=== PATIENT | female | born 1970 | race Two or more races ===

== ENCOUNTER 2017-09-16 09:12 | Outpatient (CLI) | payer OTHER ==
[~2017-09-16 09:12] MED LIST: CELEBREX100 MG PO; DICYCLOMINE HCL20 MG PO; FLECTOR30 EA TP; PRILOSEC20 MG PO; SKELAXIN800 MG PO
== END 2017-09-16 09:34 | disposition home or self-care (01) ==
LOC: SONOGRAMA 09:12 → MAMO-SONO 09:45
DX: N92.0 Excessive and frequent menstruation with regular cycle (principal)

== ENCOUNTER → 2017-09-30 | Emergency (ER) | payer OTHER ==
[~2017-09-30] VITALS: Ht 162.6 cm; Wt 68.0 kg
[~2017-09-30] MED LIST changes: +VITAMIN D400 UNI2
== END | disposition home or self-care (01) ==
LOC: ER 19:49
DX: J11.1 Influenza due to unidentified influenza virus with other respiratory manifestations (principal)

== ENCOUNTER 2018-02-13 11:39 | Outpatient (CLI) | payer OTHER | END 2018-02-13 11:50 | disposition home or self-care (01) | LOC: MAMO-SONO 11:39 | DX: Z12.31 Encounter for screening mammogram for malignant neoplasm of breast (principal); N60.11 Diffuse cystic mastopathy of right breast; N60.12 Diffuse cystic mastopathy of left breast ==

== ENCOUNTER 2018-03-27 10:52 | Outpatient (CLI) | payer OTHER | END 2018-03-27 11:04 | disposition home or self-care (01) | LOC: SONOGRAMA 10:52 | DX: D25.9 Leiomyoma of uterus, unspecified (principal); N83.292 Other ovarian cyst, left side ==

== ENCOUNTER 2018-04-12 08:03 | Outpatient (CLI) | payer OTHER | END 2018-04-12 08:12 | disposition home or self-care (01) | LOC: TOM 08:03 | DX: R10.10 Upper abdominal pain, unspecified (principal) ==

== ENCOUNTER → 2018-06-13 | Emergency (ER) | payer OTHER ==
[~2018-06-13] VITALS: Ht 162.6 cm; Wt 72.6 kg
[~2018-06-13] MED LIST changes: +CIPRO500 MG PO; +KETO10TA2 PO; +URETRON D-S TAB1 TAB PO
== END | disposition home or self-care (01) ==
LOC: ER 09:16
DX: R10.12 Left upper quadrant pain (principal)

== ENCOUNTER 2018-09-11 09:21 | Outpatient (CLI) | payer OTHER | END 2018-09-11 09:46 | disposition home or self-care (01) | LOC: SONOGRAMA 09:21 | DX: N60.11 Diffuse cystic mastopathy of right breast (principal); N60.12 Diffuse cystic mastopathy of left breast; Z80.3 Family history of malignant neoplasm of breast ==

== ENCOUNTER 2019-02-14 07:50 | Outpatient (CLI) | payer OTHER | END 2019-02-14 08:00 | disposition home or self-care (01) | LOC: MAMO-SONO 07:50 | DX: Z80.3 Family history of malignant neoplasm of breast (principal); N60.11 Diffuse cystic mastopathy of right breast; N60.12 Diffuse cystic mastopathy of left breast ==

== ENCOUNTER 2020-03-11 09:03 | Outpatient (CLI) | payer OTHER | END 2020-03-11 09:21 | disposition home or self-care (01) | LOC: MAMO-SONO 09:03 | PROVIDERS: ATTEND Surgery | DX: Z12.31 Encounter for screening mammogram for malignant neoplasm of breast (principal); N60.11 Diffuse cystic mastopathy of right breast; N60.12 Diffuse cystic mastopathy of left breast; Z80.3 Family history of malignant neoplasm of breast ==

== ENCOUNTER 2020-06-12 08:34 | Outpatient (CLI) | payer OTHER | END 2020-06-12 15:31 | disposition home or self-care (01) | LOC: NUCLEAR 08:34 | PROVIDERS: ATTEND Internal Medicine | DX: I82.622 Acute embolism and thrombosis of deep veins of left upper extremity (principal) ==

== ENCOUNTER 2020-08-04 08:56 | Outpatient (CLI) | payer OTHER | END 2020-08-04 09:02 | disposition home or self-care (01) | LOC: RAD 08:56 | PROVIDERS: ATTEND Internal Medicine | DX: M40.47 Postural lordosis, lumbosacral region (principal); I70.0 Atherosclerosis of aorta; M54.5 Low back pain ==

== ENCOUNTER 2020-09-17 10:59 | Outpatient (CLI) | payer OTHER | END 2020-09-17 12:39 | disposition HB | LOC: SONOGRAMA 10:59 | PROVIDERS: ATTEND Internal Medicine | DX: E21.4 Other specified disorders of parathyroid gland (principal) ==

== ENCOUNTER 2021-03-12 09:09 | Outpatient (CLI) | payer OTHER | END 2021-03-12 09:38 | disposition home or self-care (01) | LOC: MAMO-SONO 09:09 | PROVIDERS: ATTEND Surgery | DX: N60.11 Diffuse cystic mastopathy of right breast (principal); N60.12 Diffuse cystic mastopathy of left breast; Z12.31 Encounter for screening mammogram for malignant neoplasm of breast ==

== ENCOUNTER 2021-05-20 02:56 | Emergency (ER) | payer OTHER ==
[~2021-05-20] VITALS: Ht 162.6 cm; Wt 72.6 kg
[2021-05-20] MEDS ORDERED: VASOFLEX D1 CA1 EACH (03:06)
[2021-05-20] MEDS ORDERED: CRESTOR10 MG (03:06)
[2021-05-20] MEDS ORDERED: PEPCID40 MG PO (06:30)
[2021-05-20] MEDS ORDERED: PROTONIX40 MG PO (06:30)
== END 2021-05-20 06:37 | disposition home or self-care (01) ==
LOC: ER 02:56
DX: R10.13 Epigastric pain (principal)

== ENCOUNTER 2021-11-27 09:15 | Outpatient (CLI) | payer OTHER ==
[~2021-11-27 09:15] MED LIST changes: +CRESTOR10 MG; +PEPCID40 MG PO; +PROTONIX40 MG PO; +VASOFLEX D1 CA1 EACH
== END 2021-11-27 09:32 | disposition home or self-care (01) ==
LOC: RAD 09:15
PROVIDERS: ATTEND Internal Medicine
DX: J44.1 Chronic obstructive pulmonary disease with (acute) exacerbation (principal)

== ENCOUNTER 2022-03-15 10:29 | Outpatient (CLI) | payer OTHER | END 2022-03-15 10:43 | disposition home or self-care (01) | LOC: MAMO-SONO 10:29 | PROVIDERS: ATTEND Surgery | DX: Z12.31 Encounter for screening mammogram for malignant neoplasm of breast (principal); N60.11 Diffuse cystic mastopathy of right breast; N60.12 Diffuse cystic mastopathy of left breast ==

== ENCOUNTER 2022-07-24 21:09 | Emergency (ER) | payer OTHER ==
[~2022-07-24] VITALS: Ht 162.6 cm; Wt 71.7 kg
== END 2022-07-25 00:48 | disposition home or self-care (01) ==
LOC: ER 21:09
DX: R20.2 Paresthesia of skin (principal); I10 Essential (primary) hypertension; Z91.040 Latex allergy status; Z91.013 Allergy to seafood

== ENCOUNTER 2023-03-21 09:59 | Outpatient (CLI) | payer OTHER | END 2023-03-21 10:12 | disposition home or self-care (01) | LOC: MAMO-SONO 09:59 | PROVIDERS: ATTEND Surgery | DX: Z12.31 Encounter for screening mammogram for malignant neoplasm of breast (principal); N60.11 Diffuse cystic mastopathy of right breast; N60.12 Diffuse cystic mastopathy of left breast ==

== ENCOUNTER 2023-08-22 13:56 | Outpatient (CLI) | payer OTHER | END 2023-08-22 14:03 | disposition home or self-care (01) | LOC: RAD 13:56 | PROVIDERS: ATTEND Internal Medicine Pulmonary Disease | DX: J45.31 Mild persistent asthma with (acute) exacerbation (principal); G47.33 Obstructive sleep apnea (adult) (pediatric) ==

== ENCOUNTER 2023-10-04 07:27 | Outpatient (CLI) | payer OTHER | END 2023-10-04 07:35 | disposition home or self-care (01) | LOC: RAD 07:27 | PROVIDERS: ATTEND Internal Medicine | DX: M25.561 Pain in right knee (principal) ==

== ENCOUNTER 2024-02-27 09:18 | Outpatient (CLI) | payer OTHER | END 2024-02-27 09:34 | disposition home or self-care (01) | LOC: SONOGRAMA 09:18 | PROVIDERS: ATTEND Internal Medicine | DX: N18.30 Chronic kidney disease, stage 3 unspecified (principal) ==

== ENCOUNTER 2024-05-01 14:11 | Emergency (ER) | payer OTHER ==
[~2024-05-01] VITALS: Ht 289.6 cm; Wt 78.9 kg
[2024-05-01] MEDS ORDERED: LOSARTAN POTASS50 MG PO (14:51)
[2024-05-01 16:04] LABS: HEMATOCRIT 40.1 % (36.0-45.00); HEMOGLOBIN 13.7 g/dL (12.0-15.00); MEAN CELL VOLUME 85.7 fL (80.00-100.00); MEAN CORPUSCULAR HEMOGLOBIN 29.3 pg (27.00-32.0); MEAN CORPUSCULAR HGB CONC 34.2 g/dl (32.0-36.0); PLATELET COUNT 239 K/uL (150-450); RED BLOOD COUNT 4.69 M/uL (4.00-6.00)
[2024-05-01 16:31] LABS: INR 1.03; PARTIAL THROMBOPLASTIN TIME 27.3 SECONDS (22.0-34.0); PROTHROMBIN TIME 11.2 SECONDS (9.0-11.5)
[2024-05-01 16:35] LABS: CALCIUM 9.7 mg/dL (8.5-10.1); CREATININE SERUM 0.88 mg/dL (0.55-1.02); GFR 66.96; POTASSIUM 3.8 mEq/L (3.5-5.1)
== END 2024-05-01 20:24 | disposition home or self-care (01) ==
LOC: ER 14:11
PROVIDERS: Emergency Medicine
DX: G45.9 Transient cerebral ischemic attack, unspecified (principal)

== ENCOUNTER 2024-05-02 09:57 | Outpatient (CLI) | payer OTHER ==
[~2024-05-02 09:57] MED LIST changes: +LOSARTAN POTASS50 MG PO
== END 2024-05-02 10:11 | disposition home or self-care (01) ==
LOC: MRI 09:57
PROVIDERS: ATTEND Emergency Medicine
DX: G45.9 Transient cerebral ischemic attack, unspecified (principal)
CPT/HCPCS: 70551

== ENCOUNTER 2024-05-03 10:28 | Outpatient (CLI) | payer OTHER | END 2024-05-03 10:29 | disposition home or self-care (01) | LOC: NUCLEAR 10:28 | DX: G45.9 Transient cerebral ischemic attack, unspecified (principal) ==

== ENCOUNTER 2024-06-04 08:39 | Outpatient (CLI) | payer OTHER | END 2024-06-04 08:50 | disposition home or self-care (01) | LOC: MRI 08:39 | PROVIDERS: ATTEND Internal Medicine | DX: G35 Multiple sclerosis (principal) | CPT/HCPCS: 72142 ==